=== PATIENT | female | born 1970 | race Asian ===

== ENCOUNTER → 2019-04-19 | Day surgery (SDC) | payer OTHER ==
[~2019-04-19] VITALS: Ht 160 cm; Wt 57.1 kg
[2019-04-19 08:49] VITALS: BP 126/75
[2019-04-19 15:11] VITALS: BP 104/65
== END | disposition home or self-care (01) ==
LOC: DS 08:23 → MA 10:00
PROVIDERS: Surgery
PROC: 0HBU0ZZ Excision of Left Breast, Open Approach (ICD-10-PCS; principal; 2019-04-19 12:00)
DX: D24.2 Benign neoplasm of left breast (principal); N60.92 Unspecified benign mammary dysplasia of left breast; N60.22 Fibroadenosis of left breast
CPT/HCPCS: 88344; J0690; J2001; J2405; J2550; J2704; J3010; J3490; J7120